=== PATIENT | male | born 1935 | race Hispanic/Latino ===

== ENCOUNTER 2016-05-21 11:06 | Emergency (ER) | payer OTHER ==
[~2016-05-21] VITALS: Ht 172.7 cm; Wt 66.5 kg
[~2016-05-21 11:06] MED LIST: AMLODIPINE BESY10 MG PO; AMLODIPINE BESYL5 MG PO; ASMANEX HFA13 GM IH; ASPIR 8181 M1 PO; ASPIR-LOW81 MG PO; ASPIRIN81 M2 PO; ATORVASTATIN CA40 MG PO; AUGMENTIN500 MG PO; AZITHROMYCIN250 MG PO; DOCUSATE CALCI240 MG PO; MIRALAX255 GM PO; MULTI-DAY VITA1 EACH PO; MULTIPLE VITAM1 EACH PO; NORVASC10 MG PO; NORVASC5 MG PO; OMEPRAZOLE20 MG PO; PANTOPRAZOLE SO40 MG PO; PREDNISONE50 MG PO; PROTONIX40 MG PO; ROBITUSSIN AC,T10 ML PO; SENNA8.6 M1 PO; TESSALON PERLE100 MG PO; VENTOLIN HFA18 GM IH
[2016-05-21 13:11] LABS: HEMATOCRIT 38.9 % (38.0-50.0); MCH 32.3 PG (29.0-34.0); MCHC 33.2 G/DL (30.0-36.0); MCV 97.3 FL (86-99); PLATELET COUNT 121 K/uL (156-360); RBC DIS.WIDTH-CV 12.4 % (11.8-14.6); RBC DIS.WIDTH-SD 42.5 % (39-53); WHITE BLOOD COUNT 5.8 K/uL (4.1-10.2)
[2016-05-21 13:21] LABS: CHLORIDE 105 mEq/L (99-109); POTASSIUM 4.1 mEq/L (3.7-5.4); SODIUM 140 mEq/L (136-147)
[2016-05-21 13:23] LABS: GLUCOSE 123 mg/dL (70-99)
[2016-05-21 13:24] LABS: ANION GAP 9 MEQ/L (2-14)
[2016-05-21 13:27] LABS: GFR ESTIMATE (CALCULATED) > 59 mL/min/
[2016-05-21 13:28] LABS: UREA NITROGEN (BUN) 11 mg/dL (9-23)
[2016-05-21] MEDS ORDERED: ANTIVERT25 MG PO (15:42)
[2016-05-21 16:08] VITALS: BP 172/77
== END 2016-05-21 16:09 | disposition home or self-care (01) ==
LOC: EME 11:06
DX: R42 Dizziness and giddiness (principal); J45.909 Unspecified asthma, uncomplicated; I10 Essential (primary) hypertension; Z86.73 Personal history of transient ischemic attack (TIA), and cerebral infarction without residual deficits; Z95.0 Presence of cardiac pacemaker
CPT/HCPCS: 70450; 71020; 80048; 85027; 93005; 99281; 99285; J2405; J7030

== ENCOUNTER 2016-08-20 23:33 | Emergency (ER) | payer OTHER ==
[~2016-08-20] VITALS: Ht 177.8 cm; Wt 65.2 kg
[~2016-08-20 23:33] MED LIST changes: +ANTIVERT25 MG PO
[2016-08-21 00:27] LABS: HEMATOCRIT 37.1 % (38.0-50.0); MCH 32.2 PG (29.0-34.0); MCHC 33.2 G/DL (30.0-36.0); MCV 97.1 FL (86-99); RBC DIS.WIDTH-SD 46.6 % (39-53); RED BLOOD COUNT 3.82 M/uL (4.00-5.50)
[2016-08-21 00:39] LABS: INTER. NORMALIZED RATIO 1.1; PROTHROMBIN TIME 11.3 (9.2-11.2); PTT 30.3 (25-32)
[2016-08-21 00:41] LABS: CHLORIDE 103 mEq/L (99-109); POTASSIUM 4.2 mEq/L (3.7-5.4); SODIUM 135 mEq/L (136-147)
[2016-08-21 00:43] LABS: GLUCOSE 147 mg/dL (70-99)
[2016-08-21 00:45] LABS: ANION GAP 10 MEQ/L (2-14); TOTAL BILIRUBIN 0.4 mg/dL (0.0-1.0)
[2016-08-21 00:47] LABS: ALKALINE PHOSPHATASE 85 IU/L (3-129); GFR ESTIMATE (CALCULATED) > 59 mL/min/
[2016-08-21 00:48] LABS: UREA NITROGEN (BUN) 15 mg/dL (9-23)
[2016-08-21 00:50] LABS: LIPASE 32 U/L (1.0-51.0)
[2016-08-21 00:51] LABS: CREATINE KINASE 114 IU/L (1-294); TOTAL CK 114 IU/L (1-294)
[2016-08-21 00:54] LABS: TROP-I INTERPRETATION NEGATIVE; TROPONIN-I < 0.01 ng/mL (0.0-0.30)
[2016-08-21 00:57] LABS: CK-MB 2.5 ng/mL (0.0-4.9)
[2016-08-21 01:39] LABS: MEAN PLAT.VOLUME 11.9 uM^3 (9.0-12.4); PLAT.SUFFICIENCY DECREASED; PLATELET COUNT 114 K/uL (156-360)
[2016-08-21 01:57] LABS: ADD MIUA? NO; BILIRUBIN NEGATIVE; BLOOD NEGATIVE; COLOR STRAW ((YELLOW)); GLUCOSE (STRIP) NEGATIVE; KETONES NEGATIVE; LEUKOCYTES NEGATIVE; NITRITE NEGATIVE; PROTEIN (STRIP) NEGATIVE; SPECIFIC GRAVITY 1.014 (1.000-1.030); UCUL ADDED? NO; UROBILINOGEN 0.2 MG/DL (0.2-1.0)
[2016-08-21 02:33] VITALS: BP 143/76
== END 2016-08-21 02:46 | disposition home or self-care (01) ==
LOC: EME 23:33
PROVIDERS: Emergency Medicine
DX: H81.399 Other peripheral vertigo, unspecified ear (principal); I10 Essential (primary) hypertension; E87.1 Hypo-osmolality and hyponatremia; R05 Cough; Z95.1 Presence of aortocoronary bypass graft; J45.909 Unspecified asthma, uncomplicated; Z95.0 Presence of cardiac pacemaker
CPT/HCPCS: 70450; 80053; 81003; 82550; 82553; 83690; 84484; 85027; 85610; 85730; 93005; 99281; 99285; J2405; J3360; J7030

== ENCOUNTER 2017-08-26 23:30 | Emergency (ER) | payer OTHER ==
[~2017-08-26] VITALS: Ht 172.7 cm; Wt 67.0 kg
[2017-08-27 00:26] LABS: HEMATOCRIT 38.2 % (38.0-50.0); HEMOGLOBIN 12.9 G/DL (12.5-16.6); MCH 33.2 PG (29.0-34.0); MCHC 33.8 G/DL (30.0-36.0); MCV 98.5 FL (86-99); PLATELET COUNT 127 K/uL (156-360); RBC DIS.WIDTH-CV 12.6 % (11.8-14.6); RBC DIS.WIDTH-SD 45.4 % (39-53); RED BLOOD COUNT 3.88 M/uL (4.00-5.50); WHITE BLOOD COUNT 4.5 K/uL (4.1-10.2)
[2017-08-27 00:37] LABS: CHLORIDE 103 mEq/L (99-109); POTASSIUM 4.4 mEq/L (3.7-5.4); SODIUM 140 mEq/L (136-147)
[2017-08-27 00:39] LABS: GLUCOSE 129 mg/dL (70-99)
[2017-08-27 00:44] LABS: GFR ESTIMATE (CALCULATED) > 59 mL/min/ (58.99-99999); UREA NITROGEN (BUN) 15 mg/dL (9-23)
[2017-08-27 00:51] LABS: TROP-I INTERPRETATION NEGATIVE; TROPONIN-I < 0.01 ng/mL (0.0-0.30)
[2017-08-27 04:14] VITALS: BP 164/81
== END 2017-08-27 04:18 | disposition home or self-care (01) ==
LOC: EME 23:30
DX: R19.7 Diarrhea, unspecified (principal); R10.9 Unspecified abdominal pain; I10 Essential (primary) hypertension; E78.5 Hyperlipidemia, unspecified; F32.9 Major depressive disorder, single episode, unspecified; Z86.73 Personal history of transient ischemic attack (TIA), and cerebral infarction without residual deficits; Z95.0 Presence of cardiac pacemaker
CPT/HCPCS: 71046; 80048; 84484; 85027; 93005; 99281; 99285; J2405; J7030